=== PATIENT | female | born 1985 | race Caucasian/White ===

== ENCOUNTER → 2017-04-22 | Outpatient (CLI) | payer OTHER | LOC: OD 12:49 | PROVIDERS: ATTEND Otolaryngology | DX: J32.8 Other chronic sinusitis (principal); J35.01 Chronic tonsillitis | CPT/HCPCS: 36415; 82785; 86003 ==

== ENCOUNTER → 2017-04-26 | Outpatient (CLI) | payer OTHER ==
--- NOTE | 2017-04-26 09:13 | RADIOLOGY REPORT (SQ) ---
EXAM DESCRIPTION: SARA SWALLOW COMPLETED DATE/TIME: 04/26/2017 8:32 am REASON FOR STUDY: DYSPHAGIA R13.10 DYSPHAGIA, UNSPECIFIED COMPARISON: None. TECHNIQUE: Videofluoroscopic swallowing examination was performed in conjunction with speech patholo gy. Videofluoroscopic imaging was obtained and reviewed and these are the findings: RADIATION DOSE: Fluoro time 1.46 minutes 1 images saved to PACS. LIMITATIONS: None FINDINGS: The patient was brought into the fluoro room and placed upright on a modified barium swall ow chair. The patient was then given multiple consistencies mixed with barium to swallow under live fluoroscopic video guidance. According to the Speech Pathologist there was no penetration or aspirat ion. Please refer to speech pathology report for further details. IMPRESSION: NO EVIDENCE OF PENETRATION OR ASPIRATION.PLEASE SEE SPEECH PATHOLOGIST REPORT FOR OTHER FINDINGS AND RECOMMENDATIONS. COMMENT: None Quality ID [id number]: Final reports for procedures using fluoroscopy that document radiation exposure jeanmarie gilma, or exposure time and number of fluorographic images (if radiation exposure indices are not avail able) TECHNICAL DOCUMENTATION: JOB ID: [id number] [employer]- All Rights Reserved Reading location - IP/workstation name: [email or web address] [id number]
--- NOTE | 2017-04-26 11:22 | ST Modified Barium Swallow ---
Recommendation - Recommendations Recommendations: No oral or pharyngeal swallowing deficits seen. May benefit from further GI consult due to nature of symptoms. Medical Diagnoses - Medical Diagnoses Medical Diagnosis Description & ICD-10 Code(s): dysphagia R13.10 Other Medical Diagnoses/Co-Morbidities: patient reports that she has reflux and nasal/sinus issues ST Modified Barium Swallow - General Date: 04/26/17 Referring Physician: Dr. Bermeo Risks/Precautions: None Reason for Referral: globus sensation - History History obtained from: Patient -: Medical - Patient reports first noticed swallowing changes in 2014, around the time of her first . She reports that she was diagnosed with reflux at that time. She describes swallowing difficulties as "holding nose to swallow ". She feels that her nasal issues may be a contributing factor. The patient reports having a barium swallow in 2015, she states that the study was "normal" but that signs of reflux were seen. The patient is currently not on a modified diet, has had no recent pneumonia, no surgery involving head, neck, or shoulders. Medications: Patient reports taking vitamin, no other medications reported. Allergies: none reported - Functional Status Prior Functional Status: INDEPENDENT: feeding - independent Current Functional Limitations: feeding - independent - Subjective Patient/caregiver goal(s): r/o struct. abnormality Cognitive-Linguistic Function: WNL Speech Intelligibility: WNL Current Nutritional Means: PO Current PO diet: Regular Current symptoms: c/o Globus sensation Pain: Patient reports, 0/5 - Objective Assessment: Upright, Left Lateral - Food Trials Used Food trials used: Thin liquids, Pureed, Regular The patient: Was Able to Self Feed - Oral-Motor Skills Dentition: Full Velo-pharyngeal function: Unremarkable Laryngeal Function: Volitional Cough - wnl, Volitional Swallow - wnl - Assessment Oral prep: Normal Labial closure: Adequate Leakage: None Mastication: Adequate Lingual Movement: Normal Oral stage: Normal for this Procedure - Pharyngeal Stage Initiation of Pharyngeal Stage Reflex: Normal Decreased laryngeal elevation: No Reduced Velopharyngeal Closure: no Reduced pressure generation: No reduced tongue-based retraction: No Pre-swallow pooling in valleculae: None Pre-Swallow pooling in pyriforms: None Reduced Thyro-Hyoid approximation: No Reduced epiglottic excursion: No Reduced pharyngeal peristalsis/contraction: No Post-swallow residulas vallecular: None Post-Swallow residuals in pyriforms: None Reduced Cricopharyngeal opening: No - Esophageal Stage Esophageal Stage: May benefit from consult with tele marketing executive due to nature of swallow concerns and possible signs of esophageal issues. - Fall Risk Assessment Medications/Conditions that increase fall risks include: Antidepressants, sedatives, anti-arrhythmic, diuretic, benzodiazipenes, neuroleptics. BP regulation problems, cardiac problems, balance or gait deficits, neurological problems. Is patient considered at risk for falls: no Fall Risk Actions Taken: No action needed - Behavioral Observations During evaluation process patient: was pleasant, was cooperative, able to answer questions - Treatment / Educational Needs: Treatment/Education Needs: Treatment consisted of patient education on the role of the Speech Pathologist. Patient's plan of care and golas were communicated as well as scheduling and attendance policies. Recommendations for initial home program were shared. Patient demonstrated understanding and verbalized agreement. - Impression/Summary Laryngeal Penetration: No Tracheal Aspiration: no Risk of Aspiration: Minimal Risk of nutritional compromise: None Evaluation and Findings: Patient presents with adequate oral and pharyngeal phase swallowing for all trial textures. No oral or pharyngeal dysfunction seen. Possible signs of esophageal issues, may benefit from further evaluation. - Recommendations Solid diet recommendations: Regular Liquid Diet Modification: Thin Dysphagia therapy with LIBRARY CUSTOMER SERVICE CLERK: no Reflux Precautions: Taught to Patient Recommended techniques: Fully Upright During Meal Information, Precautions and Recommendations: Patient (Written), Patient (Verbal ) - Time Total Time: 20 - Plan of Care Patient to follow-up with referring physician: Yes Total timed minutes: 20 Strategies to optimize patient understanding include:: ongoing assessment of educational needs, implementation of educational strategies, and re-education. - - -: Thank you for the opportunity to work with this patient and his/her family. Should you have any questions about this patient's plan or progress, I can be reached at [phone]. Charge G Code? - - -: No
== END ==
LOC: RAD 07:44
PROVIDERS: ATTEND Otolaryngology
DX: R13.10 Dysphagia, unspecified (principal)
CPT/HCPCS: 74230

== ENCOUNTER → 2017-06-06 | Outpatient (CLI) | payer OTHER ==
--- NOTE | 2017-06-06 12:56 | RADIOLOGY REPORT (SQ) ---
EXAM DESCRIPTION: CT SINUSES FOR ENT COMPLETED DATE/TIME: 06/06/2017 8:14 am REASON FOR STUDY: J32.8 OTHER CHRONIC SINUSITIS J35.01 CHRONIC TONSILLITIS J32.8 OTHER CHRONIC SINU SITIS J35.01 CHRONIC TONSILLITIS COMPARISON: None. TECHNIQUE: Noncontrast scanning through the paranasal sinuses using bone algorithm. Reconstructed MPR images reviewed. All images stored on PACS. Images acquired for image guided surgery. All CT scanners at this facility use dose modulation, iterative reconstruction, and/or weight based d osing when appropriate to reduce radiation dose to as low as reasonably achievable (ALARA). [facility]: Dose Right [facility]: CareDose [facility]: Dose Right [facility]: Teradose 4D [facility]: Selectica RADIATION DOSE: 44.4 mGy. FINDINGS: NASAL PASSAGES: Clear. No polyps or masses. OSTEOMEATAL UNITS AND NASOFRONTAL DUCTS: Patent. Small right-sided Lalitha cell, coronal image 99. MAXILLARY SINUSES: Well-pneumatized and clear. Maxillary sinus outlets are patent. ETHMOID SINUSES: Well-pneumatized and clear. SPHENOID SINUSES: Well-pneumatized and clear.Pneumatized right anterior clinoid process. No sphenoet hmoid air cells or pneumatized pterygoid recess. No pneumatized dorsal sella. FRONTAL SINUSES: Well-pneumatized and clear. Pneumatization of the Lesia Estee off the right anteri or inferior frontal sinus MASTOID AIR CELLS: Clear. ORBITS: Normal and symmetrical. NASAL SEPTUM: Midline. No nasal septal spurs. TEMPOROMANDIBULAR JOINTS: Normal. TURBINATES: No pneumatized turbinates. MUCOPERIOSTEAL THICKENING: No. MUCOCELE: No. OTHER: Brain parenchyma in the field of view unremarkable. IMPRESSION: NO EVIDENCE OF ACUTE SINUSITIS. TECHNICAL DOCUMENTATION: JOB ID: [id number] Quality ID # [id number]: Final reports with documentation of one or more dose reduction techniques (e.g., Au tomated exposure control, adjustment of the mA and/or kV according to patient size, use of iterative reconstruction technique) 2010 [employer]- All Rights Reserved Reading location - IP/workstation name: [email or web address]
== END ==
LOC: RAD 08:09
PROVIDERS: ATTEND Otolaryngology
DX: J32.8 Other chronic sinusitis (principal); J35.01 Chronic tonsillitis
CPT/HCPCS: 70486

== ENCOUNTER 2017-08-05 05:39 | Day surgery (SDC) | payer OTHER ==
[2017-08-01 10:25] LABS: HEMATOCRIT 36.7 % (36.0-47.0); HEMOGLOBIN 12.8 g/dL (12.0-15.5); MEAN CORPUSCULAR HEMOGLOBIN 28.5 pg (27.0-33.4); MEAN CORPUSCULAR HGB CONC 34.9 g/dL (32.0-36.0); MEAN CORPUSCULAR VOLUME 82 fl (80-97); PLATELET COUNT 359 10^3/uL (150-450); RED CELL DISTRIBUTION WIDTH 12.6 % (11.5-14.0); WHITE BLOOD COUNT 4.9 10^3/uL (4.0-10.5)
[~2017-08-05 05:39] MED LIST: CEFAZOLIN 2 GM/D5W RTU 2 GM/50 ML RTUPB IV PRN; LACTATED RINGERS 1000 ML IV PRN; LIDOCAINE 0.5% INJ-PF (5 MG/ML) 50 ML SDV SUBCUT PRN
[2017-08-05] MEDS ORDERED: DIAZEPAM 5 MG TABLET ONE (06:21)
[2017-08-05] MEDS ORDERED: FENTANYL CITRATE INJ/PF 250 MCG/5 ML AMPULE ONE (06:26)
[2017-08-05] MEDS ORDERED: MIDAZOLAM 2 MG/2 ML INJ ONE (06:26)
[2017-08-05] MEDS ORDERED: LIDOCAINE 2% INJ-PF (20 MG/ML) 10 ML AMPUL ONE (06:26)
[2017-08-05] MEDS ORDERED: PROPOFOL INJ 200 MG/20 ML VIAL IV ONE (06:27)
[2017-08-05] MEDS ORDERED: DEXAMETHASONE SOD PHOSPHATE INJ 4 MG/1 ML VIAL ONE (06:27)
[2017-08-05] MEDS ORDERED: ACETAMINOPHEN 1,000 MG/100 ML RTUPB IV ONE (06:27)
[2017-08-05] MEDS ORDERED: DIAZEPAM 5 MG TABLET PO ONE (06:30)
[2017-08-05] MEDS ORDERED: BUPIVACAINE HCL 0.5%-EPI 1:200000 INJ/PF 30 ML VIAL ONE ×2 (07:32→09:54)
[2017-08-05] MEDS ORDERED: MINERAL OIL (STERILE) 10 ML VIAL ONE (07:32)
[2017-08-05] MEDS ORDERED: OXYMETAZOLINE HCL 0.05% NASAL SPRAY 15 ML BOTTLE ONE ×2 (07:34→10:34)
[2017-08-05] MEDS ORDERED: BUPIVACAINE HCL 0.5%/EPI 1:200000 INJ 1.8 ML CARTRIDGE ONE (10:03)
[2017-08-05] MEDS ORDERED: LIDOCAINE 1%/EPINEPHRINE INJ 20 ML VIAL ONE (10:06)
[2017-08-05] MEDS ORDERED: SUCCINYLCHOLINE CHLORIDE INJ 200 MG/10 ML VIAL ONE (14:19)
[2017-08-05] MEDS ORDERED: DIPHENHYDRAMINE HCL 50 MG/ML VIAL IV PRN ×2 (14:49→16:18)
[2017-08-05] MEDS ORDERED: FENTANYL CITRATE INJ/PF 100 MCG/2 ML AMPUL IV PRN ×6 (14:49→16:18)
[2017-08-05] MEDS ORDERED: PROMETHAZINE HCL INJ 25 MG/1 ML VIAL IV PRN ×5 (14:49→17:21)
[2017-08-05] MEDS ORDERED: ONDANSETRON HCL INJ/PF 4 MG/2 ML SDV IV PRN ×3 (14:49→17:21)
[2017-08-05] MEDS ORDERED: MEPERIDINE HCL/PF INJ 25 MG/1 ML DISP.SYRIN IV PRN ×2 (14:49→16:18)
[2017-08-05] MEDS ORDERED: MORPHINE SULFATE 10 MG/ML INJ IV PRN ×3 (14:49→17:21)
[2017-08-05] MEDS ORDERED: OXYCODONE-ACETAMINOPHEN 5-325 MG TABLET PO PRN (17:21)
[2017-08-05] MEDS ORDERED: RINGERS SOLUTION,LACTATED 1,000 ML IV PRN (17:21)
[2017-08-05] MEDS ORDERED: ONDANSETRON 4 MG TAB.RAPDIS PO PRN (17:40)
[2017-08-05] MEDS ORDERED: OXYCODONE-ACETAMINOPHEN 5-325 MG TABLET ONE (18:12)
[2017-08-05 19:47] VITALS: BP 114/74
--- NOTE | 2017-08-07 21:40 | OPERATIVE REPORT E ---
Operative Report NAME: WILIAN REYES : 1985 AGE: 32Y DATE OF SURGERY: 08/05/2017 ROOM: PREOPERATIVE DIAGNOSES: 1. NASAL SEPTAL DEVIATION, ACQUIRED. 2. NASAL DEFORMITIES, ACQUIRED. 3. CHRONIC NASAL DYSPNEA. 4. BILATERAL INFERIOR TURBINATE HYPERTROPHY. POSTOPERATIVE DIAGNOSES: 1. NASAL SEPTAL DEVIATION, ACQUIRED. 2. NASAL DEFORMITIES, ACQUIRED. 3. CHRONIC NASAL DYSPNEA. 4. BILATERAL INFERIOR TURBINATE HYPERTROPHY. OPERATIONS: 1. External/open reconstructive septorhinoplasty addressing the bony nasal pyramid and lower cartilages with tip elevation/stabilization and with bilateral cartilage grafting. 2. Bilateral inferior turbinate reduction using a submucous resection technique. SURGEON: LEANNE AREVALO D.O. ANESTHESIA: General endotracheal tube. ANESTHESIA STAFF: MANUEL [place]. ESTIMATED BLOOD LOSS: 50 mL. IV FLUIDS: 2700 mL. COMPLICATIONS: None. DRAINS: None. SPONGE COUNT: Verified. NEEDLE COUNT: Verified. MATERIALS FORWARDED SPECIMEN: None. FINDINGS: 1. Right nasal septal deviation involving bone and cartilage with a maxillary crest/septal spur. 2. Left caudal septal margin was displaced into the left nasal vestibule, as was the left medial crura/medial crural footplate. 3. Bilateral nasal valve collapse, along with cephalically sweeping lower lateral cartilages, which were weak in their overall structural integrity. 4. Nasal dorsum mid vault was severely narrowed/pinched. 5. Upper lateral cartilages/nasal dorsum was with a significant T-top/T-table presence/deformity. 6. Bilateral inferior turbinate hypertrophy. 7. Nasal bony pyramid was broad, right greater than left. 8. Bony and cartilaginous nasal dorsal irregularities/deformities. INDICATIONS: This is a 32-year-old white female who was seen and evaluated in the [facility] office. The patient was referred for and the patient complained of a longstanding history of chronic nasal dyspnea over the years. The patient also reports a history of recurrent sinus disease each year, requiring antibiotics over the past 10 years. The patient denies sinus difficulty, however, over the past year in [place]. When the patient was living in the [facility], she notes her sinus disease difficulty was more problematic. She had also been seen and evaluated by an ENT with nasal/septorhinoplasty discussed, which she did not follow through with. After extensive discussion with the patient, recommendation and plan was to proceed exclusively with septorhinoplasty and turbinate surgery and no sinus surgery. The procedures and all of their risks and complications were all discussed in detail with the patient. She voiced an understanding of the described surgical plan, agreed to proceed, and consent was obtained. PROCEDURE: The patient was taken to the main operating room and placed on the operating room table in the supine position. Appropriate monitor placed. Using mask and IV access, general anesthesia was induced. The patient was then positioned for nasal surgery. She underwent a nasal examination with injection of local anesthetic with epinephrine and 2 Afrin-soaked neuro patties were placed per nasal passage. The patient was then prepped and draped in the usual fashion for nasal surgery. The Afrin-soaked neuro patties were removed and the patient underwent a hemitransfixion incision. There was elevation of the mucoperichondrial and mucoperiosteal flaps without difficulty. The bony cartilaginous junction was identified and divided, and the most deviated portions of septal cartilage and bone were removed. The maxillary crest spur/septal spur was also removed without difficulty. There was cartilage also removed to be utilized as grafts. There was a greater than 1.5 x 1.5 cm cartilaginous L-strut that was preserved. The cartilaginous septum was also mobilized from the anterior nasal spine and maxillary crest with excess cartilage trimmed adjacent to the anterior nasal spine and maxillary crest area. At this point, the turbinate bipolar wand was used to make 2 passes in each inferior turbinate. The anterior aspect of each inferior turbinate was entered with a pair of Te scissors, followed by elevation of tissue in a submucosal plane with a [place] elevator. At this point, the turbinate microdebrider system at a setting of 1500 rpm was used to perform submucous resection on each side. Next, a Sayer elevator was used to outfracture each inferior turbinate. Excessive mucosa was trimmed and the tissue margins were reapproximated with chromic suture. At this point, the rhinoplasty portion of the case was addressed in the following manner. There was an inverted V-incision made in the mid columellar area and this was followed by marginal incisions. Next, the skin/soft tissue envelope was elevated in a subperichondrial and subperiosteal fashion. The previously discussed cephalically sweeping and weakened lateral aspect of the lower lateral cartilages were dissected free from surrounding tissue and completely mobilized. At this point, the upper lateral cartilages were detached from the septal cartilage. There were autospreaders created, which were sutured in place to the septum with 6-0 Prolene suture. Additional cartilage was fashioned for extended checkering machine operator grafts, which were secured in place with 6-0 Prolene suture. The upper lateral cartilage was then brought in place and secured over the extended checkering machine operator grafts with 6-0 Prolene suture. Cartilage irregularities were trimmed with an 11 blade. At this point, there were extended alar ramy grafts that were fashioned and secured to the lower lateral cartilages at the lateral aspect with 6-0 Prolene suture. This was followed by creation of precise pockets to caudally relocate the lower lateral cartilages with extended alar ramy grafts. These were secured in their new position with [id number] 5-0 Prolene suture with Telfa bolsters inside and outside of the nose. The dome region was stabilized with 6-0 Prolene suture. Next, the caudal septum was fixed at the anterior nasal spine with 5-0 Prolene suture. This was followed by nasal tip complex stabilization as the medial crura were secured to the caudal septal margin with 6-0 Prolene. Excessive medial crural cartilage was trimmed. There had also been dorsal rasp work performed. Next, cartilage grafts were placed as dorsal onlay grafts. The skin/soft tissue envelope was then brought back into position and the inverted V-incision was reapproximated with a deep chromic suture. All the incisions inside the nose were reapproximated with chromic suture. The inverted V-incision skin margins were reapproximated with 6-0 Prolene suture. The nose was again thoroughly suctioned, with adequate hemostasis noted. There was 1 Harrington silicone nasal splint placed per side with Bacitracin ointment. These were secured at the caudal aspect with 4-0 Prolene suture, and 6-0 Prolene suture was also used over the nasal dorsum to secure onlay cartilage grafts in position. The patient's nose was then cleaned and dried, followed by placement of Bacitracin ointment over the incision area, and Mastisol and Steri-Strips over the nasal dorsum. The patient was then returned to the Anesthesia staff and was allowed to emerge from general anesthesia. The patient was extubated in the main operating room and was then transported to the post anesthesia recovery unit in stable condition. There were no complications. DICTATING PHYSICIAN: LEANNE AREVALO D.O. [id number] PHY#: [id number] ID: [id number] JOB#: [id number] ACCT: [id number] cc:LEANNE AREVALO D.O. > MTDD
== END 2017-08-05 20:13 | disposition home or self-care (01) ==
LOC: OROUT 05:39
PROVIDERS: ATTEND Otolaryngology
PROC: 09TL7ZZ Resection of Nasal Turbinate, Via Natural or Artificial Opening (ICD-10-PCS; 2017-08-05)
PROC: 09U Ear, Nose, Sinus, Supplement (ICD-10-PCS; principal; 2017-08-05 07:30)
PROC: 09BM8ZZ Excision of Nasal Septum, Via Natural or Artificial Opening Endoscopic (ICD-10-PCS; 2017-08-05 07:30)
DX: M95.0 Acquired deformity of nose (principal); J34.2 Deviated nasal septum; J34.3 Hypertrophy of nasal turbinates; R06.09 Other forms of dyspnea; J30.9 Allergic rhinitis, unspecified
CPT/HCPCS: 36415; 85027; 81025; 30420; 20912; 30140; J2250; J3490 ×5; J1100; S0119; J3010; J0330; J2704; J0690; J0131; 160

== ENCOUNTER → 2018-02-18 | Outpatient (CLI) | payer OTHER | LOC: LAB 16:44 | PROVIDERS: ATTEND Otolaryngology | DX: B07.8 Other viral warts (principal) | CPT/HCPCS: 88305 ==

== ENCOUNTER → 2019-01-01 | Outpatient (CLI) | payer OTHER | LOC: OD 10:40 | PROVIDERS: ATTEND Otolaryngology | DX: J30.9 Allergic rhinitis, unspecified (principal); J32.8 Other chronic sinusitis | CPT/HCPCS: 36415; 86003 ==

== ENCOUNTER → 2019-01-02 | Outpatient (CLI) | payer OTHER ==
--- NOTE | 2019-01-02 09:28 | ST Modified Barium Swallow ---
Recommendation - Recommendations Recommendations: Recommend follow up with clinical swallow evaluation. No abnormal findings on MBSS this day, however, patient reports significant impact of swallowing on her daily life, such as having to modify meals. Treatment is indicated to address functional changes in swallowing, as well as globus sensation. Patient may also benefit from FEES after initiation of treatment. Medical Diagnoses - Medical Diagnoses Medical Diagnosis Description & ICD-10 Code(s): dysphagia R13.10 Other Medical Diagnoses/Co-Morbidities: patient reports that she has reflux and nasal/sinus issues, tonsil stones ST Modified Barium Swallow - General Date: 01/02/19 Referring Physician: Dr. Bermeo Risks/Precautions: None Date of Onset: 12/08/14 - approximate onset date Reason for Referral: discomfort with swallowing - History -: Medical - Patient reports first noticed swallowing changes in 2014, around the time of her first . She reports that she was diagnosed with reflux at that time. She describes swallowing difficulties as uncomfortable and effortful. The patient reports having a barium swallow in 2016, she states that the study was "normal" but that signs of reflux were seen. The patient is currently not on a modified diet, has had no recent pneumonia. She has had surgery for deviated septum repair. Recent ENT scope revealed "lingual tonsil area with moderate fullness and compressed against the epiglottis". Functionally, the patient states that she has a lot of anxiety around meals, and has modified to eating smaller amounts throughout the day. Medications: Patient reports taking singulair, keyona. Physician note reports neilMed sinus flush, claritin, flonase, nasonex, oetirizine, folate-B12, fish oil Allergies: per patient report: ciprofloxacin, omeprazole - Functional Status Prior Functional Status: INDEPENDENT: feeding - independent Current Functional Limitations: feeding - discomfort with swallowing - Subjective Patient/caregiver goal(s): better swallow, r/o struct. abnormality Cognitive-Linguistic Function: WNL Speech Intelligibility: WNL Current Nutritional Means: PO Current PO diet: Regular Current symptoms: other - discomfort with swallowing Pain: Patient reports, 0/5 - Objective Assessment: Upright, Left Lateral - Food Trials Used Food trials used: Thin liquids, Pureed, Regular The patient: Was Able to Self Feed - Oral-Motor Skills Dentition: Full Velo-pharyngeal function: Unremarkable Laryngeal Function: Volitional Cough, Volitional Swallow - Assessment Oral prep: Normal Labial closure: Adequate Leakage: None Mastication: Adequate Lingual Movement: Normal Oral stage: Normal for this Procedure - Pharyngeal Stage Initiation of Pharyngeal Stage Reflex: Normal Decreased laryngeal elevation: No Reduced Velopharyngeal Closure: no Reduced pressure generation: No reduced tongue-based retraction: No Pre-swallow pooling in valleculae: None Pre-Swallow pooling in pyriforms: None Reduced Thyro-Hyoid approximation: No Reduced epiglottic excursion: No Post-swallow residulas vallecular: None Post-Swallow residuals in pyriforms: None Post-Swallow Residuals: no residuals - Fall Risk Assessment Medications/Conditions that increase fall risks include: Antidepressants, sedatives, anti-arrhythmic, diuretic, benzodiazipenes, neuroleptics. BP regulation problems, cardiac problems, balance or gait deficits, neurological problems. Is patient considered at risk for falls: no Fall Risk Actions Taken: No action needed - Behavioral Observations During evaluation process patient: was pleasant, was cooperative, able to answer questions, provided medical history - Treatment / Educational Needs: Treatment/Education Needs: Treatment consisted of patient education on the role of the Speech Pathologist. Patient's plan of care and golas were communicated as well as scheduling and attendance policies. Recommendations for initial home program were shared. Patient demonstrated understanding and verbalized agreement. - Impression/Summary Laryngeal Penetration: No Tracheal Aspiration: no Patient presents with: Normal swallow at eval - no physiological deficits seen Risk of Aspiration: Minimal Evaluation and Findings: No aspiration of penetration seen on study. No residue seen in pharynx. Patient does report significant sensations of pressure and effort to swallow, as well as pain and globus, resulting in the patient having to modify her meals to reduce these sensations. Patient may benefit from dysphagia treatment to address these issues. - Recommendations Solid diet recommendations: Regular Liquid Diet Modification: Thin Pt/Family education and followup with MD: Yes Dysphagia therapy with TOURS CAPTAIN: dysphagia therapy Recommended techniques: Fully Upright During Meal, Small Bites and Sips Information, Precautions and Recommendations: Patient (Written) - Time Total Time: 45 - Plan of Care Strategies to optimize patient understanding include:: ongoing assessment of educational needs, implementation of educational strategies, and re-education. - - -: Thank you for the opportunity to work with this patient and his/her family. Should you have any questions about this patient's plan or progress, I can be reached at [phone].
--- NOTE | 2019-01-02 12:09 | RADIOLOGY REPORT (SQ) ---
EXAM DESCRIPTION: COOKIE SWALLOW COMPLETED DATE/TIME: 01/02/2019 8:50 am REASON FOR STUDY: DYSPHAGIA (R13.10) R13.10 DYSPHAGIA, UNSPECIFIED pressure and discomfort while sw allowing COMPARISON: Modified barium swallow 04/26/2017. TECHNIQUE: Videofluoroscopic swallowing examination was performed in conjunction with speech patholo gy. Videofluoroscopic imaging was obtained and reviewed and these are the findings: RADIATION DOSE: 1 minutes 16 seconds of fluoroscopy was used. 2 images saved to PACS. LIMITATIONS: None FINDINGS: The patient was brought into the fluoro room and placed upright on a modified barium swall ow chair. The patient was then given multiple consistencies mixed with barium to swallow under live fluoroscopic video guidance. According to the Speech Pathologist there was no penetration or aspirat ion. IMPRESSION: NO EVIDENCE OF PENETRATION OR ASPIRATION. PLEASE SEE SPEECH PATHOLOGIST REPORT FOR OTHER FINDINGS AND RECOMMENDATIONS. COMMENT: Quality ID [id number]: Final reports for procedures using fluoroscopy that document radiation exp osure indices, or exposure time and number of fluorographic images (if radiation exposure indices are not available) TECHNICAL DOCUMENTATION: JOB ID: [id number] [employer]- All Rights Reserved Reading location - IP/workstation name: [email or web address]
== END ==
LOC: RAD 07:49
PROVIDERS: ATTEND Otolaryngology
DX: R13.10 Dysphagia, unspecified (principal)
CPT/HCPCS: 74230

== ENCOUNTER 2019-03-14 10:46 | Day surgery (SDC) | payer OTHER ==
[2019-03-09 11:46] LABS: ABSOLUTE BASOPHILS # (AUTO) 0.1 10^3/uL (0.0-0.2); ABSOLUTE EOSINOPHILS # (AUTO) 0.1 10^3/uL (0.0-0.6); ABSOLUTE MONOCYTES (AUTO) 0.4 10^3/uL (0.1-1.4); ABSOLUTE NEUT (AUTO) 2.7 10^3/uL (1.7-8.2); BASOPHILS % (AUTO) 1.2 % (0-2); EOSINOPHILS % (AUTO) 2.6 % (0-6); HEMATOCRIT 37.5 % (36.0-47.0); HEMOGLOBIN 12.8 g/dL (12.0-15.5); LYMPHOCYTES % (AUTO) 37.8 % (13-45); MEAN CORPUSCULAR HEMOGLOBIN 28.4 pg (27.0-33.4); MEAN CORPUSCULAR HGB CONC 34.1 g/dL (32.0-36.0); MEAN CORPUSCULAR VOLUME 83 fl (80-97); MONOCYTES % (AUTO) 7.7 % (3-13); PLATELET COUNT 371 10^3/uL (150-450); RED CELL DISTRIBUTION WIDTH 13.4 % (11.5-14.0); SEGMENTED NEUTROPHILS % (AUTO) 50.7 % (42-78); TOTAL CELLS COUNTED % (AUTO) 100 %; WHITE BLOOD COUNT 5.3 10^3/uL (4.0-10.5)
[2019-03-09 12:16] LABS: ANION GAP 11 (5-19); BLOOD UREA NITROGEN 12 mg/dL (7-20); CALCIUM 9.8 mg/dL (8.4-10.2); CARBON DIOXIDE 29 mmol/L (22-30); CHLORIDE 100 mmol/L (98-107); GLUCOSE 86 mg/dL (75-110); POTASSIUM 4.5 mmol/L (3.6-5.0)
[~2019-03-14 10:46] MED LIST changes: -CEFAZOLIN 2 GM/D5W RTU 2 GM/50 ML RTUPB IV PRN; +DEXAMETHASONE SOD PHOSPHATE INJ 4 MG/1 ML VIAL ONE; -LIDOCAINE 0.5% INJ-PF (5 MG/ML) 50 ML SDV SUBCUT PRN; +LIDOCAINE 2% INJ-PF (20 MG/ML) 2 ML AMPUL ONE; +ONDANSETRON HCL INJ/PF 4 MG/2 ML SDV ONE; +SUCCINYLCHOLINE CHLORIDE INJ 200 MG/10 ML VIAL ONE
[2019-03-14] MEDS ORDERED: CLINDAMYCIN 900 MG/D5W RTU 900 MG/50 ML RTUPB IV ONE (10:59)
[2019-03-14] MEDS ORDERED: SCOPOLAMINE HYDROBROMIDE 1.5 MG PATCH.TD72 ONE (11:23)
[2019-03-14] MEDS ORDERED: FENTANYL CITRATE INJ/PF 250 MCG/5 ML AMPULE ONE (11:55)
[2019-03-14] MEDS ORDERED: PROPOFOL INJ 200 MG/20 ML VIAL IV ONE (11:56)
[2019-03-14] MEDS ORDERED: MIDAZOLAM 2 MG/2 ML INJ ONE (11:56)
[2019-03-14] MEDS ORDERED: PROMETHAZINE HCL INJ 25 MG/1 ML VIAL IV PRN ×2 (12:34)
[2019-03-14] MEDS ORDERED: DIPHENHYDRAMINE HCL 50 MG/ML VIAL IV PRN (12:34)
[2019-03-14] MEDS ORDERED: FENTANYL CITRATE INJ/PF 100 MCG/2 ML AMPUL IV PRN ×3 (12:34)
[2019-03-14] MEDS ORDERED: OXYCODONE-ACETAMINOPHEN 5-325 MG TABLET PO PRN ×3 (12:34→14:24)
[2019-03-14] MEDS ORDERED: MEPERIDINE HCL/PF INJ 25 MG/1 ML DISP.SYRIN IV PRN (12:34)
[2019-03-14] MEDS ORDERED: BUPIVACAINE HCL 0.5%/EPI 1:200000 INJ 1.8 ML CARTRIDGE ONE (13:09)
[2019-03-14] MEDS ORDERED: OXYMETAZOLINE HCL 0.05% NASAL SPRAY 15 ML BOTTLE ONE (13:10)
[2019-03-14] MEDS ORDERED: MEPERIDINE HCL/PF INJ 25 MG/1 ML DISP.SYRIN ONE (14:04)
[2019-03-14] MEDS ORDERED: ONDANSETRON HCL INJ/PF 4 MG/2 ML SDV IV PRN (14:24)
[2019-03-14] MEDS ORDERED: HYDROCOD/ACETAMIN 7.5-325 MG/15 ML ORAL SOLN UDCUP ONE (14:52)
[2019-03-14] MEDS ORDERED: ONDANSETRON HCL INJ/PF 4 MG/2 ML SDV ONE (16:03)
[2019-03-14 16:17] VITALS: BP 99/65
--- NOTE | 2019-03-31 07:58 | Operative Report ---
Operative Report-[facility] Operative Report: DATE OF OPERATION: March 14, 2019 PREOPERATIVE DIAGNOSIS: 1. Tonsillar hypertrophy 2. Chronic tonsillitis 3. Tonsil stones 4. Lingual tonsil hypertrophy 5. Chronic dysphagia POSTOPERATIVE DIAGNOSIS: 1. Tonsillar hypertrophy 2. Chronic tonsillitis 3. Tonsil stones 4. Lingual tonsil hypertrophy 5. Chronic dysphagia PROCEDURE: 1. Bilateral tonsillectomy patient age rater than 13 2. Lingual tonsils, ablation/reduction 3. Transnasal flexible surgical endoscopy Primary Surgeon of Record: Dr. Dominick Bermeo CALL TAKER: None Anesthesia Staff: MANUEL Mehta ANESTHESIA: General Endotracheal Tube Anesthesia DRAINS: None SPONGE COUNT: Verified Needle Count: N/A SPECIMEN/MATERIALS FORWARD TO THE LAB: 1. Left and Right Tonsillar Tissue ESTIMATED BLOOD LOSS: 10 mL IV FLUIDS: 1000 mL COMPLICATIONS: None Findings: 1. The tonsils were greater than 2+ in size, were highly cryptic in appearance, and were with tonsillar debris present bilateral. 2. Bilateral lingual tonsil hypertrophy. 3. The soft palatal tissues were redundant in nature and the uvula was unremarkable in appearance. INDICATIONS: This is a 34-year-old white female patient has been seen and evaluated and followed in the [place] [facility] office. The patient had been referred for and the patient complained of a history of chronic tonsillitis, and recurrent tonsil stones over the years and has considered having her tonsils removed over the years. The patient is also with history of chronic dysphagia with speech pathology concern for possible contribution/difficulty from the lingual tonsil hypertrophy is also noted on office-based endoscopy. After extensive discussion with the patient the recommendation and plan was to proceed with a tonsillectomy, and lingual tonsil reduction/ablation surgery. The procedure and all of the risks and complications were all discussed in detail with the patient. She voiced an understanding of the described surgical plan, were in agreement, and consent was obtained. DESCRIPTION OF OPERATIVE PROCEDURE: The patient was taken to the main operating room and was placed on the operating room table in the supine position. Appropriate monitors were placed. Using mask and IV access general anesthesia was induced. The patient was next transorally intubated without difficulty. The table was then rotated 90 and the patient was positioned and prepped for tonsil and adenoid surgery. The lips, teeth, tongue, and gums were inspected and noted to be without defect. The patient had a mouth gag inserted. It was opened and the patient was placed into suspension. There was a soft catheter passed through the nose that was used to suspend the soft palate. Findings are as noted above. The plasma J-hook device was used to dissect and remove the tonsils from the tonsillar fossae without difficulty. This was also used to provide adequate hemostasis. Normal saline irrigation was performed and was suctioned. Adequate hemostasis was noted. The soft catheter was released and removed from the patients nose. The patient was next released from suspension and the mouth gag was closed. It was opened again and there was again no bleeding noted. It was then removed from the patient's mouth without difficulty. At this point the patient's mouth was gently opened, the tongue was protruded, transnasal flexible surgical endoscopy was performed for direct visualization of the lingual tonsils, and a Coblation wand was used to perform central lingual tonsil ablation. There was no damage to the lips, teeth, tongue, or gums noted. The patient was then returned to the anesthesia staff and was allowed to emerge from general anesthesia. The patient was extubated in the operating room and was transported to the post anesthesia recovery unit in stable condition. There were no complications.
== END 2019-03-14 16:30 | disposition home or self-care (01) ==
LOC: OROUT 10:46
PROVIDERS: ATTEND Otolaryngology
DX: J35.1 Hypertrophy of tonsils (principal); J35.8 Other chronic diseases of tonsils and adenoids; R13.10 Dysphagia, unspecified; Z79.899 Other long term (current) drug therapy; J30.9 Allergic rhinitis, unspecified; H69.83 Other specified disorders of Eustachian tube, bilateral; J32.9 Chronic sinusitis, unspecified
CPT/HCPCS: 36415; 85025; 81025; 80048; 88304 ×2; 00170; 42826; 31231; J2250; J3490 ×3; J1100; J3010; J2175; J0330; J2405; J2704; 170